=== PATIENT | female | born 1985 | race African-American/Black ===

== ENCOUNTER 2017-05-30 18:48 | Emergency (ER) | payer BC, SELFPAY | END 2017-05-30 19:32 | disposition home or self-care (01) | LOC: ERS 18:48 | DX: L01.00 Impetigo, unspecified (principal); E66.9 Obesity, unspecified; J45.909 Unspecified asthma, uncomplicated; Z79.899 Other long term (current) drug therapy | CPT/HCPCS: 99282 ==